=== PATIENT | male | born 1950 | race Hispanic/Latino ===

== ENCOUNTER 2017-12-11 12:53 | Emergency (ER) | payer MEDICARE, MEDICAID ==
[2017-12-11 13:05] VITALS: RESP 18
[2017-12-11] MEDS ORDERED: Sodium Chloride 0.9% 1,000 ML IV STA (13:36)
[2017-12-11 14:24] LABS: VENOUS BLOOD GAS BASE EXCESS 2.5 mmol/L (0.0-2.0); VENOUS BLOOD GAS PCO2 48 mmHg (40-60); VENOUS BLOOD GAS PO2 22 mm/Hg (30-55); VENOUS BLOOD PH 7.38 (7.32-7.43)
--- NOTE | 2017-12-11 14:54 | ED PDOC ---
HPI: Abdomen Time Seen by Provider: 12/11/17 13:15 Chief Complaint (Nursing): Abdominal Pain Chief Complaint (Provider): Chest tightness History Per: Patient History/Exam Limitations: no limitations Onset/Duration Of Symptoms: Hrs (this am) Additional Complaint(s): Emmanuel Amato, a 67 year old male with past medical history of hypertension, type 2 diabetes and CLL (since age 54), presents to the emergency room with chest tightness and discomfort since this morning. Patient states he is recently homeless and fallen on hard times and has been moving between shelters and hotels. He believes the stress triggered his symptoms and was seen at a different hospital in [place] yesterday. Patient states he is very reliant on family members and otherwise feels hopeless but does not have SI/HI. No further medical complaints. PMD: None Past Medical History Reviewed: Historical Data, Nursing Documentation, Vital Signs Vital Signs: Last Vital Signs Temp 98.1 F 12/11/17 13:01 Pulse 113 H 12/11/17 13:01 Resp 18 12/11/17 13:01 BP 110/75 12/11/17 13:01 Pulse Ox 99 12/11/17 13:01 - Medical History PMH: Diabetes (type 2), HTN Other PMH: CLL (since age 54) - Family History Family History: States: Unknown Family Hx - Home Medications Home Medications: Ambulatory Orders Medication Instructions Recorded Sulfamethoxazole/Trimethoprim 1 tab PO BID #6 tab 12/11/17 [Bactrim DS 800 mg-160 mg] - Allergies Allergies/Adverse Reactions: Allergies Allergy/AdvReac Type Severity Reaction Status Date / Time No Known Allergies Allergy Verified 12/11/17 13:01 Review of Systems ROS Statement: Except As Marked, All Systems Reviewed And Found Negative Cardiovascular: Positive for: Chest Pain (tightness and discomfort) Psych: Negative for: Suicidal ideation, Other (homicidal ideation) Physical Exam - Reviewed Nursing Documentation Reviewed: Yes Vital Signs Reviewed: Yes - Physical Exam Appears: Positive for: Well, Non-toxic, No Acute Distress Head Exam: Positive for: ATRAUMATIC, NORMAL INSPECTION, NORMOCEPHALIC Skin: Positive for: Normal Color, Warm, DRY Eye Exam: Positive for: EOMI, Normal appearance, PERRL ENT: Positive for: Normal ENT Inspection Neck: Positive for: Normal, Painless ROM Cardiovascular/Chest: Positive for: Regular Rate, Rhythm Respiratory: Positive for: Normal Breath Sounds. Negative for: Respiratory Distress Gastrointestinal/Abdominal: Positive for: Normal Exam, Soft Back: Positive for: Normal Inspection Extremity: Positive for: Normal ROM Neurologic/Psych: Positive for: Alert, Oriented Comments: ambulating and tolerating PO - Laboratory Results Result Diagrams: 12/11/17 14:15 12/11/17 14:15 - ECG O2 Sat by Pulse Oximetry: 99 (RA) Pulse Ox Interpretation: Normal Medical Decision Making Medical Decision Making: Time: 13:15 Initial Impression: cardiac workup vs. malingering (based on pt requesting food and clean socks, carrying multiple bags and unpacking and charging multiple electronics in room) Initial Plan: --Venous blood gas --EKG --BNP --CMP --Lipase --Troponin --EKG --CBC w/ differential --Partial thromboplastin time --Prothrombin time -discharge pending labs, CXR and reevaluation Time: 1800 Blood work, EKG, and vitals WNL. Pt asymptomatic and tolerating PO. Lab work shows UTI and Bactrim and rx for bactrim given. Pt discharged with information for [facility]. PT given referral for outpatient follow up. Return parameters discussed with the patient. Scribe Attestation: Documented by Jana Arriaga, acting as a scribe for Emilie Pierce MD. Provider Scribe Attestation: All medical record entries made by the Scribe were at my direction and personally dictated by me. I have reviewed the chart and agree that the record accurately reflects my personal performance of the history, physical exam, medical decision making, and the department course for this patient. I have also personally directed, reviewed, and agree with the discharge instructions and disposition. Disposition - Clinical Impression Clinical Impression: Chest pain, Urinary tract infection - Disposition Referrals: [facility] [place] [Outside] Disposition: Routine/Home Disposition Time: 18:00 Condition: IMPROVED Additional Instructions: Take antibiotics twice per day for 3 days. Follow up with your primary medical doctor or call to schedule an appointment at the clinic (information in the referral sheet) if you would like to become established at a local clinic. Return to the emergency department if symptoms worsen. GO to [facility] if housing is needed [address] [place], [place] [id number] Prescriptions: Sulfamethoxazole/Trimethoprim [Bactrim DS 800 mg-160 mg] 1 tab PO BID #6 tab Instructions: Urinary Tract Infection, Adult (DC), Chest Pain (DC), Kidney Infection (DC) Forms: [employer] (Nepali) Print Language: SERBIAN
[2017-12-11 15:00] LABS: BASO # 0.1 K/uL (0.0-0.2); BASO % 0.3 % (0.0-2.0); EOS # 0.2 K/uL (0.0-0.7); EOS % 1.1 % (0.0-4.0); HEMOGLOBIN 15.2 g/dL (12.0-18.0); LYMPH # 4.9 K/uL (1.0-4.3); LYMPH % 29.4 % (20.0-40.0); MEAN CELL VOLUME 95.4 fl (80.0-94.0); MEAN CORPUSCULAR HEMOGLOBIN 32.2 pg (27.0-31.0); MEAN CORPUSCULAR HGB CONC 33.8 g/dL (33.0-37.0); MONO # 1.1 K/uL (0.0-0.8); MONO % 6.7 % (0.0-10.0); NEUT # 10.4 K/uL (1.8-7.0); NEUT % 62.5 % (50.0-75.0); NRBC % 0.1 % (0.0-0.0); RBC 4.73 Mil/uL (4.40-5.90); WHITE BLOOD COUNT 16.6 K/uL (4.8-10.8)
--- NOTE | 2017-12-11 15:05 | RAD ---
Date of service: 12/11/2017 HISTORY: possible admission COMPARISON: No prior. FINDINGS: LUNGS: No active pulmonary disease. PLEURA: No significant pleural effusion identified, no pneumothorax apparent. CARDIOVASCULAR: Cardiomediastinal silhouette enlarged. OSSEOUS STRUCTURES: Degenerative changes. VISUALIZED UPPER ABDOMEN: Normal. OTHER FINDINGS: None. IMPRESSION: No active disease.
[2017-12-11 15:06] LABS: ALB/GLOB RATIO 1.1 (1.0-2.1); ALBUMIN 4.3 g/dL (3.5-5.0); CALCIUM 9.7 mg/dL (8.4-10.2); PROTHROMBIN TIME 11.6 Seconds (9.8-13.1)
[2017-12-11 15:08] LABS: PARTIAL THROMBOPLASTIN TIME 29.4 Seconds (25.6-37.1)
[2017-12-11 17:09] LABS: SQUAMOUS EPITHIAL < 1 /hpf (0-5); URINE BACTERIA MOD (<OCC); URINE BILIRUBIN NEGATIVE (NEGATIVE); URINE CLARITY CLOUDY (Clear); URINE COLOR YELLOW (YELLOW); URINE GLUCOSE (UA) NEG (Normal); URINE LEUKOCYTE ESTERASE LARGE Leu/uL (Negative); URINE PROTEIN 30 mg/dL (NEGATIVE); WBC CLUMPS FEW /hpf
[2017-12-11 17:19] LABS: URINE BLOOD SMALL (NEGATIVE)
[2017-12-11] MEDS ORDERED: Naproxen 500 MG TAB PO STA (17:29)
[2017-12-11] MEDS ORDERED: Tmp-Smz 800 mg-160 mg DS Tab PO STA (18:11)
[2017-12-11 18:30] VITALS: BP 108/75; PULSE 71; TEMP 98.8
[2017-12-11 18:32] LABS: TROPONIN I 0.021 ng/mL (0.00-0.120)
--- NOTE | 2017-12-11 21:42 | CARD ---
APPROVED REPORT Date of service: 12/11/2017 EKG Measurement Heart [id number] <Conclusion> Sinus tachycardia with premature atrial complexes Left ventricular hypertrophy with QRS widening and repolarization abnormality Cannot rule out Septal infarct, age undetermined Abnormal ECG
[2017-12-12 14:49] VITALS: O2SAT 99
== END 2017-12-11 18:36 | disposition home or self-care (01) ==
LOC: H.ER 12:53
DX: N39.0 Urinary tract infection, site not specified (principal); R07.9 Chest pain, unspecified; E11.9 Type 2 diabetes mellitus without complications; I10 Essential (primary) hypertension
CPT/HCPCS: 71045; 80053; 81003; 82803; 83690; 83880; 84484; 85025; 85610; 85730; 93005; 96361; 96374; 99284; J2765; J7030